=== PATIENT | male | born 1945 | race Caucasian/White ===

== ENCOUNTER → 2016-12-16 | Outpatient (CLI) | payer OTHER ==
[~2016-12-16] MED LIST: AGG PO; GLC500 PO; HYDC25 PO; INSDGI SC; LISI-461 PO; MCR5 PO; PRLSR20 PO; SIMV80TA2 PO; VIT B 1
--- NOTE | 2016-12-17 05:52 | PAP/PSG TECHNICIAN REPORT ---
[facility] Mash Preparatory Operator Polysomnogram Report Study name: None Report date: 12/17/2016 Study date: 12/16/2016 Referring Physician: DR. ABENA GALICIA Name: JOLENE HUYNH Interpreting Physician: Rolando Mcdermott M.D. Date of : 1945 Mash Preparatory Operator: Babita Valladares RPS. Sex: Male Age: 71 StudyType: PSG Weight: 253 lbs Height: 71 years, Height 5' 9" BMI: 37.36 Medications: Insulin, Metformin 1000 mg Patient History 71 yr. old male here for a diagnostic sleep study. Patient is tired and does not have refreshing sleep. He is unsure if he snores. Patients Page Sleepiness Scale Score is 9/24. Parameters Monitored NPSG: E1-M2, E2-M1, Fp1-M2, Fp2-M1, F3-M2, F4-M2, F4-M1, C3-M2, C4-M2, C4-M1, O1-M2, O2-M2, O2-M1, T3-M2, T4-M1, P3-M2, P4-M1, CHIN1, CHIN2, HR, EKG, Legs, PFLOW, SNOR, FLOW, CFLOW, Tidal Volume, THOR, ABDO, SpO2, PLTH, CPRESS, ETCO2 Wave, ETCO2, pH Sleep Architecture Sleep Stages Time at Lights Off 8:51:22 PM STAGES Time (min.) TST (%) Time at Lights On 5:31:22 AM Wake 93.5 -- Total Recording Time (TRT) 520.00 min. N1 46.0 11 Total Sleep Period (TSP) 496.5 min. N2 268.5 63 Total Sleep Time (TST) 426.5min. N3 60.0 14 Awake Time 93.5 min. REM 52.0 12 Wake after Sleep Onset 71.0 min. Sleep Efficiency (SE) 82 % Sleep Onset Latency (MANINDER) 22.5 min. Number of Stage 1 Shifts None Awakenings 22 Stage Changes 99 Number of REM periods 9 REM 52.0 12 REM Latency 179.5 min. NREM 374.5 88 Body Position Analysis Supine Right Left Side Prone Vertical Total Sleep Time (min.) 103.2 126.4 222.3 348.71 0.0 0.1 Total Sleep Time (%) 18% 30% 52% 82 0% N/A% Total Sleep Time REM (min.) 19.5 16.5 16.0 None 0.0 0.0 Total Sleep Time NREM (min.) 58.3 109.9 206.3 None 0.0 0.0 Intermittent Wake (min.) 25.4 37.6 30.4 None 0.0 0.1 Total Sleep Period (%) 16% None None None None None Arousals Myoclonus (PLM) * Events Count Index Events Count Index Spontaneous 3 0 Events Awake (PLMW) 37 23.7 Respiratory 13 2.1 Events Asleep w/ Arousal (PLMA) 18 2.5 PLM 16 3 Events Asleep w/o Arousal (PLMS) 592 83.3 Snoring 9 1 Total Asleep 610 85.8 Total 41 6 Total 647 75 Respiratory Analysis * CA OA MA CH H RERA Total Count 0 47 0 0 55 0 102 Index 0.0 6.6 0.0 0 7.7 0 14.3 Mean Duration 0.0 30.8 0.0 0.00 27.3 0.0 28.9 Longest Duration 0.0 55.5 0.0 0.00 0.0 0.0 58.5 Respiratory Event Summary Total Supine ~Supine Right Left Prone REM NREM Apneas Count 47 34 13 5 8 N/A 19 28 Index 6.6 26 2 2.4 2.2 N/A 22 4 Hypopneas (4% Desat) Count 55 14 41 21 20 N/A 18 37 Index 7.7 10.8 7 10.0 5.4 N/A 20.8 5.9 Apneas & All Hypopneas Count 102 48 54 26 28 N/A 37 65 Index 14.3 37 9 12 8 N/A 42.7 10.4 Respiratory Events (Auto Locator+All Hyp+RERA) Count 102 48 54 26 28 N/A 37 65 Index 14.3 37 9 12.3 7.6 N/A 42.7 10.4 Respiratory Related Arousal Count 13 48 8 2 6 N/A 6 9 Index 2.1 5 1 1 2 N/A 7 1 Snoring Analysis Supine Right Left Prone REM NREM Total Snore duration 112.3 min Snores count 549 1,519 2,708 N/A 364 4,412 4,776 Snore mean duration 1.4 Sec Snores index 423 721 731 N/A 420.0 706.9 671.9 TST with snoring (%) 26.3% Desaturation Event Summary: Minimum %SpO2 Event Count Mean/Min/Max Duration(sec.) Desaturation Index % Time In Bed > 90 97 33.5 / 7.0 / 60.0 12.9 87.9 86 - 90 11 26.1 / 7.0 / 39.3 11.2 11.5 81 - 85 0 N/A 0.0 0.6 76 - 80 0 N/A 0.0 0.0 71 - 75 0 N/A 0.0 0.0 66 - 70 0 N/A 0.0 0.0 61 - 65 0 N/A 0.0 0.0 56 - 60 0 N/A 0.0 0.0 51 - 55 0 N/A 0.0 0.0 < 50 0 N/A 0.0 0.0 Total REM NREM Awake <50% 0.0 min. 0.0 min. 0.0 min. 0.0 min. 51 - 60% 0.0 min. 0.0 min. 0.0 min. 0.0 min. 61 - 70% 0.0 min. 0.0 min. 0.0 min. 0.0 min. 71 - 80% 0.0 min. 0.0 min. 0.0 min. 0.0 min. 81 - 90% 62.0 min. 22.5 min. 28.9 min. 10.6 min. 91 - 100% 450.6 min. 29.5 min. 345.6 min. 75.5 min. Average 92 91 92 92 Minimum SpO2 81 81 81 81 Desaturation Event Index 11.5 36.9 9.1 7.7 # Desat. Events below 89% 33 20 12 1 Time(%) with Saturation below 89% 3.5 2.3 0.9 0.3 Time(min.) with Saturation below 89% 17.8 11.6 4.4 1.8 Time (mins) REM (mins) NREM (mins) % of TST SpO2 Below 90% 68 31 N37 6.1 SpO2 Below 88% 19 0 0 2 Heart Rate Analysis Min (bpm) Max (bpm) Average (bpm) Awake 32 82 65 NREM 52 78 62 REM 54 77 63 Overall 52 78 62 Supplemental O2 Values Minimum O2 level: None Value Start Time End Time Mash Preparatory Operator Comments Mr. Huynh slept in the right, left, and supine positions. Cardiac arrhythmia and PLMs noted. No bruxism noted. Snoring was noted and scored as a 4 on a scale of 0 through 5. (0=no snoring, 5=snoring loud enough to be heard through a closed door or down the cabrera way) Mr. Huynh awoke to use the restroom once during the night. Mr. Huynh stated, that was a normal night. The final report will be interpreted and signed by a sleep physician. The completed physician report will then be placed in the patient medical record. Therapy (cm H2O) 0 TIB (min.) 520.0 TST (min.) 426.5 Sleep Onset (min.) 22.5 REM Onset From Sleep (min.) 179.5 Sleep Efficiency % 82 Wakefulness (%) 18 Wakefulness (min.) 93.5 NREM 1 (%) 11 NREM 1 (min.) 46.0 NREM 2 (%) 63 NREM 2 (min.) 268.5 NREM 3 (%) 14 NREM 3 (min.) 60.0 REM (%) 12 REM (min.) 52.0 # Arousals 41 Arousal Index 6 # Snore 4,776 Snore Index 671.9 AHI 14.3 AHI Supine 37 AHI Non-Supine 9 NREM AHI 10.4 REM AHI 42.7 RDI 14.3 # Obstructive Apnea 47 # Central Apnea 0 # Mixed Apnea 0 # Hypopneas 55 RERAs 0 Total Respiratory Events 103 Time Below SpO2 89% (min.) 16.0 Mean NREM SpO2 (%) 92 Mean REM SpO2 (%) 91 Mean Sleep SpO2 (%) 92 Min NREM SpO2 (%) 81 Min REM SpO2 (%) 81 Position Supine (min.) 103.2 Position Non-supine (min.) 348.7 LM Index Sleep 85.8 LM Index NREM 92.3 LM Index REM 39.2 Mean Heart Rate (bpm) 62 Min Heart Rate (bpm) 52
--- NOTE | 2016-12-18 11:12 | POLYSOMNOGRAPH REPORT ---
CLINICAL DATA: A 71-year-old male with BMI of 37.[address] Adolfo Vital with fatigue and unrefreshing sleep. He is unsure if he snores. His [place] sleepiness score is 9/24. SLEEP ARCHITECTURE: Total sleep period was 496.5 minutes. Total sleep time was 426.5 minutes divided between 374.5 minutes of non-REM sleep and 52 minutes of REM sleep. Sleep onset latency was 22.5 minutes. REM latency was 179.5 minutes. Sleep efficiency was 82%. Wake after sleep onset was 71 minutes. Sleep consisted of stage N1 11%, stage N2 63%, stage N3 14%, and REM 12%. AROUSAL DATA: Forty-one arousals were recorded for an index of 6 per hour. PLM DATA: Severely elevated limb movements during sleep were noted. There were 610 limb movements during sleep noted for an index of 85.8 per hour with arousal index of 2.5 per hour. RESPIRATORY DATA: Mild sleep apnea was documented. The AHI was 14.3. There were 47 obstructive apneic episodes. The longest apneic episode was 55.5 seconds. There were 55 hypopneic episodes with a mean duration of 27.3 seconds. OXIMETRY DATA: Nocturnal hypoxemia was seen. Oxygen yair was 81% during REM. The mean saturation was 92%. Time below 88% was 19 minutes. EKG: Heart rates ranged from 52-78 beats per minute. Occasional PVCs were noted. SOLDER TECHNICIAN'S COMMENTS: The patient slept in the right, left, and supine positions. Frequent PLMs were noted. Snoring was severe, rated 4 on a scale of 1-5. IMPRESSION: Mild sleep apnea/hypopnea with an AHI of 14.3 with nocturnal hypoxemia. RECOMMENDATIONS: The patient may benefit from use of an oral appliance, a repeat sleep study with CPAP, or use of auto CPAP. Clinical correlation is needed. [facility] HOSPITALZack
== END | disposition home or self-care (01) ==
LOC: C.NEUR 20:00
PROVIDERS: ATTEND Family Medicine
DX: R53.83 Other fatigue (principal)

== ENCOUNTER 2024-09-10 09:29 | Observation (INO) ==
--- NOTE | 2024-09-10 09:49 | Emergency Department Note ---
Impression & Plan Chest pain, Pleural effusion ED Provider Note NAME: JOLENE HUYNH AGE: 79 SEX: M : 1945 ARRIVES VIA: Walk-In INFORMANT: Patient, ED PROVIDER(S): Tommy Schultz MD CHIEF COMPLAINT: Chest pain MEDICAL DECISION MAKING: Patient presents due to concern for chest pain. Patient's story concerning open vitals initial EKG unremarkable. Patient was ordered blood work [id number] CT angiography of the chest to evaluate for PE and dissection. Patient had complained of pain radiating to the back. Patient ordered aspirin and morphine IV 4 mg. Patient reassessed and still uncomfortable. The patient was ordered fentanyl 25 mcg. Patient's blood work shows a white count 11.6 with a normal hemoglobin and platelet count kidney function unremarkable. The patient's initial troponin negative. CT angiography does show small left pleural effusion but no other concerning findings like PE aneurysm or dissection. Given the patient's acute symptoms do believe the patient would benefit from admission and further monitoring. I did speak with the on-call hospital service and the patient was admitted by Dr. Lord. Of note patient did have recurrence of his chest pain but this was after palpation reportedly by the inpatient service. Patient was ordered fentanyl but then this was canceled as the patient has standing orders of Tylenol and morphine noted. EKG was reviewed and unremarkable. Discussion w/ other healthcare providers: Dr. Lord inpatient medicine service Prior /Outside records reviewed: None Differential diagnosis: Cardiac ischemia, aortic dissection, pulmonary embolism, pneumothorax, pneumonia, pericarditis, myocarditis, GERD, cholecystitis, pancreatitis, musculoskeletal, as well as other pathologies were considered. Diagnostics, as interpreted by me: ECG: Sinus with rate degree AV block, rate of 73 prolonged LA normal QRS and normal axis. Repeat EKG interpreted by myself Sinus with first-degree AV block, rate of 67 prolonged LA normal QRS no obvious ST elevations. No significant change from comparison. Cardiac monitoring: An order was placed for continuous cardiac monitoring. The monitor shows a rate of 69 with sinus rhythm. Patient was placed on pulse oximetry Medical decision rules: None Imaging studies: I informally interpreted the patient's chest x-ray does not show obvious pneumonia or pneumothorax with formal report to follow. HPI: Patient presents due to concern for chest pain which began last evening. The patient states it was diffuse over the chest. He describes it as sharp and does radiate to the back. Patient states that he also does feel like there is somebody's "sitting on my chest." Patient denies any prior history of heart attack but has suffered prior stroke. Patient denies any cough or fever no leg swelling no history of DVT or PE. Patient denies any recent travel. Patient did not taken thing for symptoms at home. He did not take his morning medications today. Given the persistence of the symptoms he presented today. Patient denies any associated nausea vomiting or diaphoresis. PAST MEDICAL HISTORY: See Below PAST SURGICAL HISTORY: See Below SOCIAL HISTORY: See Below HOME MEDICATIONS: See Below ALLERGIES: See Below VITALS: See Below PHYSICAL EXAMINATION: GENERAL: Mildly ill in appearance with shallow breathing. Wearing glasses. EYE EXAM: Normal conjunctiva. PERRL, no anisocoria and EOM's grossly intact w/o pain. OROPHARYNX: Moist mucus membranes, grossly normal dentition. NECK: Trachea midline, no stridor. Supple, no nuchal rigidity, no adenopathy, non-tender. No signs of meningismus. FROM of the neck with good chin to chest and neck extension. LUNGS: Clear to auscultation. Normal chest wall mechanics. HEART: NSR, no MRG. ABDOMEN: Abdomen soft, non-tender, no masses, no rebound or guarding. BACK: No CVA TTP. SKIN: No rashes and no bruising. UPPER EXTREMITIES: Upper extremities are grossly normal. LOWER EXTREMITIES: Grossly normal, slight left greater than right lower extremity swelling but without significant edema. No TTP. No redness. NEURO EXAM: Awake and alert, follows commands, no obvious facial asymmetry, normal speech, moves all 4 extremities. 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 ANNETTE (obstructive sleep apnea) Post traumatic amnesia TIA (transient ischemic attack) BPH (benign prostatic hyperplasia) Decubital ulcer Diabetic neuropathy Hyperlipidemia Hypertension Diabetes History of stroke Surgical History H/O decompression of ulnar nerve H/O spinal fusion History of carpal tunnel release Family History Other Family history non-contributory Social History Smoking Status: Never smoker Hx Alcohol Use: No Hx Substance Use: No Preferred Language: [place] Communication Ability: Effective Visual Impairment: Limited Hearing Ability: Normal [employer] Principal Required: No Beliefs That Will Affect Care: None marital status: Current Living Situation: Alone current occupational status: disabled Feels Safe at Home: Yes Diet: regular caffeine: Yes during the past year weight has: decreased > 10 lbs Do you think of yourself as: straight/heterosexual Gender Identity: Male Assistive Devices: Walker Allergies Allergies Allergy/AdvReac Type Severity Reaction Status Date / Time No Known Drug Allergies Allergy Unknown Unknown Verified 05/05/21 10:03 mushroom Allergy UKN Verified 05/12/21 10:04 Home Meds Home Medications Medication Instructions Recorded Confirmed benzonatate 100 mg capsule 0 mg PO TID PRN Cough 05/06/18 09/10/24 omeprazole 20 mg tablet,delayed 20 mg PO QAM 05/06/18 09/10/24 release tamsulosin 0.4 mg capsule 0.4 mg PO DAILY 10/11/20 09/10/24 acetaminophen 500 mg tablet 500 mg PO BID 03/06/21 09/10/24 (Tylenol Extra Strength) insulin glargine 100 unit/mL 34 unit subcut QPM 04/04/21 09/10/24 subcutaneous solution (Lantus U-100 Insulin) lisinopril 10 mg tablet 10 mg PO DAILY 04/04/21 09/10/24 atorvastatin 20 mg tablet 20 mg PO HS 09/10/24 09/10/24 cholecalciferol (vitamin D3) 25 2,000 unit PO DAILY 09/10/24 09/10/24 mcg (1,000 unit) tablet cyanocobalamin (vitamin B-12) 500 500 mcg PO DAILY 09/10/24 09/10/24 mcg tablet loratadine 10 mg tablet 10 mg PO DAILY 09/10/24 09/10/24 magnesium oxide 420 mg tablet 420 mg PO DAILY 09/10/24 09/10/24 melatonin 3 mg capsule 6 mg PO HS PRN Sleep 09/10/24 09/10/24 metformin 500 mg tablet 500 mg PO BIDWMEAL 09/10/24 09/10/24 multivitamin with minerals 1 cap PO DAILY 09/10/24 09/10/24 semaglutide 1 mg subcut WK 09/10/24 09/10/24 ticagrelor 90 mg tablet 90 mg PO BID 09/10/24 09/10/24 Previous Rx's Medication Instructions Recorded azithromycin 250 mg tablet See Rx Instructions PO .COMPLEX #6 09/11/24 tabs ibuprofen 200 mg tablet 400 mg (2 x 200 mg) PO QID 7 days 09/11/24 #56 tabs metoprolol tartrate 25 mg tablet 12.5 mg (1/2 x 25 mg) PO BID #30 09/11/24 tabs Results & Data (ED) Vital Signs Vital Signs - 24 hr 09/10/24 09:40 Temperature 36.6 C Temperature Source Oral Pulse Rate 74 Pulse Rhythm Regular Respiratory Rate 20 Respiratory Effort / Characteristics Non-Labored Spontaneous Respiratory Depth Normal Respiratory Pattern Regular Blood Pressure 149/64 H Blood Pressure Mean 92 Blood Pressure Position Sitting Pulse Oximetry 96 Oxygen Delivery Method Room Air Sepsis Recent Fever Within 48 Hours No Sepsis New/Unexplained Change in Mental Status No Sepsis Action Taken by Nursing No Action Required Home Medications Current Medication List: was personally reviewed by me Laboratory Data Attestation: I reviewed the patient's lab results. 09/11/24 07:52 09/11/24 07:52 Lab Results 09/10/24 09/10/24 Range/Units 09:45 09:56 WBC 11.61 H (4.8-10.8) K/ul RBC 4.86 (4.70-6.10) M/uL Hgb 14.7 (14.0-18.0) g/dl POC Hgb 14.6 (14.0-18.0) g/dl Hct 43.5 (42.0-52.0) % POC Hct 43 (42-52) % MCV 89.5 (80.0-100.0) fL MCH 30.2 (25.0-34.0) pg MCHC 33.8 (32.0-36.0) g/dL RDW Std Deviation 38.5 (36.4-46.3) fL RDW Coeff of [place] 11.9 (11.5-14.5) % Plt Count 196 (130-400) K/uL MPV 10.9 (9.4-12.4) fL Immature Gran % (Auto) 0.3 % Neut % (Auto) 66.5 % Lymph % (Auto) 24.6 % [place] % (Auto) 7.3 % Eos % (Auto) 1.0 % Baso % (Auto) 0.3 % Neut # (Auto) 7.71 H (1.40-6.50) K/uL Lymph # (Auto) 2.86 (1.20-3.40) K/uL [place] # (Auto) 0.85 H (0.11-0.59) K/uL Eos # (Auto) 0.12 (0.00-0.50) K/uL Baso # (Auto) 0.03 (0.00-0.20) K/uL Immature Gran # (Auto) 0.04 (0.01-0.20) K/uL PT 10.9 (9.0-12.0) Seconds INR 1.0 (0.9-1.1) APTT 29 (21-31) Seconds PTT Ratio 1.1 POC Sodium 138 (135-144) mmol/L Sodium 136 (136-145) mmol/L POC Potassium 4.5 (3.3-5.0) mmol/L Potassium 4.4 (3.5-5.1) mmol/L POC Chloride 103 (101-112) mmol/L Chloride 103 (98-107) mmol/L Carbon Dioxide 27 (21-32) mmol/L POC Total CO2 23 L (24-31) mmol/L Anion Gap 6 (3-11) POC Anion Gap 18.0 (16-25) mmol/L POC BUN 13 (7-18) mg/dl BUN 14 (6-23) mg/dl Creatinine 1.04 (0.6-1.4) mg/dl POC Creatinine 1.1 (0.6-1.3) mg/dl Est Cr Clr Drug Dosing 67.6 ml/min eGFR 73.50 BUN/Creatinine Ratio 13.5 (10-20) Glucose 171 H (70-99(Fasting)) mg/dl POC Glucose (other) 167 H (70-99) mg/dl Calcium 9.3 (8.6-10.3) mg/dl POC Ioniz Calcium [place] 1.11 L (1.12-1.32) mmol/l Total Bilirubin 0.9 (0.2-1.0) mg/dl AST 18 (13-39) U/L ALT 18 (7-52) U/L Alkaline Phosphatase 79 (34-104) U/L Troponin I High Sens 3.6 (0-20) pg/ml Total Protein 7.1 (6.0-8.3) gm/dl Albumin 4.4 (3.4-5.0) gm/dl Globulin 2.7 (2.5-4.0) gm/dl Albumin/Globulin Ratio 1.6 (0.9-2) Lipase 29 (11-82) U/L Administered Medications Discontinued Medications Acetaminophen (Acetaminophen 500 Mg Tab) 500 mg PO BID CHRISSIE Stop: 10/10/24 20:59 Last Admin: 09/11/24 08:33 Dose: 500 mg Documented By: Admin: 09/10/24 21:17 Dose: 500 mg Documented By: ARELYP Acetaminophen (Acetaminophen 325 Mg Tab) 650 mg PO Q4H PRN PRN Reason: pain/fever Stop: 10/10/24 11:42 Last Admin: 09/10/24 13:20 Dose: 650 mg Documented By: MEE Aspirin (Aspirin Chew 324 Mg) 324 mg PO NOW STA Stop: 09/10/24 09:54 Last Admin: 09/10/24 10:00 Dose: 324 mg Documented By: ARELY Aspirin (Aspirin 81 Mg Ectab) 81 mg PO DAILY [facility]SIE Stop: 10/11/24 08:59 Last Admin: 09/11/24 08:33 Dose: 81 mg Documented By: KIERSTEN Atorvastatin Calcium (Atorvastatin 20 Mg Tab) 20 mg PO HS [facility]ISSIE Stop: 10/10/24 20:59 Last Admin: 09/10/24 21:18 Dose: 20 mg Documented By: ARELYP Cyanocobalamin (Cyanocobalamin (B-12) 500 Mcg Tablet) 500 mcg PO DAILY CH[facility]ISSIE Stop: 10/11/24 08:59 Last Admin: 09/11/24 08:33 Dose: 500 mcg Documented By: ESL Fentanyl Citrate (Fentanyl Citrate Pf 100 Mcg/2 Ml Vial) 50 mcg IV NOW STA Stop: 09/10/24 10:23 Last Admin: 09/10/24 10:35 Dose: Not Given Documented By: ARELY Fentanyl Citrate (Fentanyl Citrate Pf 100 Mcg/2 Ml Vial) 25 mcg IV NOW [facility] Stop: 09/10/24 10:25 Last Admin: 09/10/24 10:35 Dose: 25 mcg Documented By: ARELY Ibuprofen (Ibuprofen 200 Mg Tab) 400 mg PO QID [facility] Stop: 10/11/24 10:19 Last Admin: 09/11/24 10:51 Dose: 400 mg Documented By: KIERSTEN Insulin Aspart (Insulin Aspart Per Unit Charge) 0 units [facility] Stop: 10/10/24 12:44 Last Admin: 09/11/24 12:44 Dose: 5 units Documented By: KIERSTEN Co-signed By: ANTWON Admin: 09/11/24 09:21 Dose: 4 units Documented By: KIERSTEN Co-signed By: SHEY Admin: 09/10/24 21:19 Dose: 2 units Documented By: CYTNHIA Co-signed By: GAIL Admin: 09/10/24 18:02 Dose: 2 units Documented By: GRISELDA Co-signed By: SHEY Admin: 09/10/24 15:04 Dose: Not Given Documented By: GRISELDA Insulin Glargine (Lantus Per Unit Charge) 0 units SC [facility]; Protocol Stop: 10/10/24 20:59 Last Admin: 09/10/24 21:19 Dose: 10 units Documented By: CYNTHIA Co-signed By: GAIL Ioversol (Optiray 320 125ml) 120 ml IV ONCE ONE Stop: 09/10/24 10:10 Last Admin: 09/10/24 10:10 Dose: 120 ml Documented By: EMILY Lisinopril (Lisinopril 10 Mg Tab) 10 mg PO DAILY [facility] Stop: 10/11/24 08:59 Last Admin: 09/11/24 08:33 Dose: 10 mg Documented By: KIERSTEN Loratadine (Loratadine 10 Mg Tab) 10 mg PO DAILY [facility] Stop: 10/11/24 08:59 Last Admin: 09/11/24 08:33 Dose: 10 mg Documented By: KIERSTEN Magnesium Oxide (Magnesium Oxide 400 Mg Tab) 400 mg PO DAILY [facility] Stop: 10/11/24 08:59 Last Admin: 09/11/24 08:33 Dose: 400 mg Documented By: KIERSTEN Metoprolol Tartrate (Metoprolol Tartrate 25 Mg Tab) 25 mg PO BID [facility] Stop: 10/10/24 20:59 Last Admin: 09/11/24 08:33 Dose: 25 mg Documented By: Admin: 09/10/24 21:18 Dose: 25 mg Documented By: CYNTHIA Morphine Sulfate (Morphine Sulfate 4 Mg/Ml 1 Ml Carp\\Vial) 4 mg IV NOW STA Stop: 09/10/24 09:54 Last Admin: 09/10/24 10:00 Dose: 4 mg Documented By: ARELY Morphine Sulfate (Morphine Sulfate 4 Mg/Ml 1 Ml Carp\\Vial) 4 mg IV Q2H PRN PRN Reason: Pain Stop: 09/24/24 11:41 Last Admin: 09/11/24 03:37 Dose: 4 mg Documented By: Admin: 09/10/24 12:31 Dose: 4 mg Documented By: MARGARITA Multivitamins/Minerals (Cerovite Adv Formula Tab) 1 tab PO DAILY [facility] Stop: 10/11/24 08:59 Last Admin: 09/11/24 08:33 Dose: 1 tab Documented By: KIERSTEN Pantoprazole Sodium (Pantoprazole 40 Mg Tab) 40 mg PO QAM [facility] Stop: 10/11/24 08:59 Last Admin: 09/11/24 08:34 Dose: 40 mg Documented By: KIERSTEN Tamsulosin HCl (Tamsulosin Hcl 0.4 Mg Cap) 0.4 mg PO DAILY [facility] Stop: 10/11/24 08:59 Last Admin: 09/11/24 08:34 Dose: 0.4 mg Documented By: KIERSTEN Ticagrelor (Ticagrelor 90 Mg Tab) 90 mg PO BID [facility] Stop: 10/10/24 20:59 Last Admin: 09/11/24 08:34 Dose: 90 mg Documented By: Admin: 09/10/24 21:19 Dose: 90 mg Documented By: CYNTHIA Vitamin D (Cholecalciferol 25 Mcg (1000 Units) Tab) 25 mcg PO DAILY [facility] Stop: 10/11/24 08:59 Last Admin: 09/11/24 08:33 Dose: 25 mcg Documented By: KIERSTEN Imaging Data Radiologist's Impression: Chest X-Ray 09/10/24 09:53 Clinical History: Chest pain and shortness of breath Technique: A frontal view of the chest was obtained Findings: There are no confluent pulmonary infiltrates. The heart size is within normal limits. No pleural effusion or pneumothorax is seen. There is no definite pulmonary nodule. There is a thoracolumbar fusion. There are multiple old left rib fractures Impression: No active disease Electronically signed by Adiel Peters 09-10-2024 10:25 AM Chest CTA 09/10/24 10:01 Clinical history: Chest pain and shortness of breath. Rule out dissection Technique: Axial computed tomography images were obtained of the chest before and after the administration of intravenous contrast according to the CT angiogram protocol Comparison is made to the prior CT dated 10/11/2020 Findings: There is subsegmental atelectasis in the lingula and left lower lobe. There is minimal right lung base atelectasis. There is no right pleural effusion or pneumothorax. There is a small left pleural effusion. No endobronchial lesion is seen There is no mediastinal, hilar, or axillary adenopathy. The thoracic aorta appears unremarkable with no sign of aneurysm or dissection. There is no definite sign of pulmonary embolism. There is no pericardial effusion There are partially visualized bilateral renal cysts. There is a 2 mm right renal calculus. There are old healed rib fractures bilaterally. There is a posterior fusion of T7-T12. No focal osseous lesion is evident Impression: 1. No sign of thoracic aortic aneurysm or dissection 2. No definite sign of pulmonary embolism 3. Small left pleural effusion 4. Mild bilateral lung base atelectasis 5. Bilateral renal cysts and small right renal calculus Electronically signed by Adiel Peters 09-10-2024 10:54 AM Discharge Plan Visit Data Chief Complaint: Chest Pain Stated Complaint: SOB,TIGHTNESS OF CHEST ED Provider: Tommy Schultz Discharge Problem: Chest pain, Pleural effusion Patient Disposition: Admitted As Inpatient Condition: Good Discharge Instructions Interventions: ED Discharge Assessment Last Done: 09/10/24 14:25 Discharge Problem: Chest pain Qualifiers: Chest pain type: unspecified Qualified Code(s): R07.9 - Chest pain, unspecified
[2024-09-10] MEDS: MoRPHine SULFATE 4 MG/ML 1 ML CARP\\VIAL IV STA (10:00)
[2024-09-10] MEDS: ASPIRIN CHEW 324 MG PO STA (10:00)
[2024-09-10 10:07] LABS: Hematocrit (blood only) 43.5 % (42.0-52.0); Hemoglobin 14.7 g/dl (14.0-18.0); Immature Granulocytes # (auto) 0.04 K/uL (0.01-0.20); Immature Granulocytes % (auto) 0.3 %; Mean Corpuscular Hemoglobin 30.2 pg (25.0-34.0); Mean Corpuscular Volume 89.5 fL (80.0-100.0); Platelet Count 196 K/uL (130-400); RDW Standard Deviation 38.5 fL (36.4-46.3); Red Blood Count 4.86 M/uL (4.70-6.10); White Blood Count 11.61 K/ul (4.8-10.8)
[2024-09-10] MEDS: OPTIRAY 320 125ml IV ONE (10:10)
[2024-09-10 10:16] LABS: INR 1.0 (0.9-1.1); Partial Thromboplastin Time 29 Seconds (21-31); Prothrombin Time 10.9 Seconds (9.0-12.0)
[2024-09-10 10:25] LABS: Alanine Aminotransferase 18.0 U/L (7-52); Albumin Globulin Ratio 1.6 (0.9-2); Alkaline Phosphatase 79.0 U/L (34-104); Anion Gap 6.0 (3-11); Bilirubin,Total 0.9 mg/dl (0.2-1.0); Blood Urea Nitrogen 14.0 mg/dl (6-23); Calcium 9.3 mg/dl (8.6-10.3); Carbon Dioxide 27.0 mmol/L (21-32); Chloride 103.0 mmol/L (98-107); Creatinine Clr Calc Pharmacy 67.6 ml/min; Globulin 2.7 gm/dl (2.5-4.0); Glucose 171.0 mg/dl (70-99(Fasting)); Lipase 29.0 U/L (11-82); Potassium 4.4 mmol/L (3.5-5.1); Sodium 136.0 mmol/L (136-145); Total Protein 7.1 gm/dl (6.0-8.3)
--- NOTE | 2024-09-10 10:26 | XRay Report ---
Clinical History: Chest pain and shortness of breath Technique: A frontal view of the chest was obtained Findings: There are no confluent pulmonary infiltrates. The heart size is within normal limits. No pleural effusion or pneumothorax is seen. There is no definite pulmonary nodule. There is a thoracolumbar fusion. There are multiple old left rib fractures Impression: No active disease Electronically signed by Adiel Peters 09-10-2024 10:25 AM
--- NOTE | 2024-09-10 10:54 | CT Scan Report ---
Clinical history: Chest pain and shortness of breath. Rule out dissection Technique: Axial computed tomography images were obtained of the chest before and after the administration of intravenous contrast according to the CT angiogram protocol Comparison is made to the prior CT dated 10/11/2020 Findings: There is subsegmental atelectasis in the lingula and left lower lobe. There is minimal right lung base atelectasis. There is no right pleural effusion or pneumothorax. There is a small left pleural effusion. No endobronchial lesion is seen There is no mediastinal, hilar, or axillary adenopathy. The thoracic aorta appears unremarkable with no sign of aneurysm or dissection. There is no definite sign of pulmonary embolism. There is no pericardial effusion There are partially visualized bilateral renal cysts. There is a 2 mm right renal calculus. There are old healed rib fractures bilaterally. There is a posterior fusion of T7-T12. No focal osseous lesion is evident Impression: 1. No sign of thoracic aortic aneurysm or dissection 2. No definite sign of pulmonary embolism 3. Small left pleural effusion 4. Mild bilateral lung base atelectasis 5. Bilateral renal cysts and small right renal calculus Electronically signed by Adiel Pteers 09-10-2024 10:54 AM
[2024-09-10] MEDS ORDERED: MELATONIN 3 MG TAB PO PRN (11:40)
[2024-09-10] MEDS ORDERED: PHARMACY GLYCEMIC MGMT CONSULT PRN (11:42)
[2024-09-10] MEDS ORDERED: ONDANSETRON INJ 2 MG/ML 2 ML VIAL IV PRN (11:43)
[2024-09-10] MEDS ORDERED: SEMAGLUTIDE 1 MG SQ SCH (11:45)
[2024-09-10] MEDS: MoRPHine SULFATE 4 MG/ML 1 ML CARP\\VIAL IV PRN (12:31)
[2024-09-10] MEDS ORDERED: GLUCAGON FOR INJ 1 MG VIAL SQ PRN (12:45)
[2024-09-10] MEDS ORDERED: CARBOHYDRATES FOR HYPOGLYCEMIA PO PRN (12:45)
[2024-09-10] MEDS ORDERED: DEXTROSE 50% 50 ML SYRINGE IV PRN (12:45)
[2024-09-10] MEDS ORDERED: GLUCOSE 10 TAB/TUBE PO PRN (12:45)
[2024-09-10] MEDS ORDERED: GLUCOSE 40% GEL 15 GM TUBE PO PRN (12:45)
--- NOTE | 2024-09-10 12:54 | History & Physical Report ---
Date of Service September 10, 2024 Assessment & Plan (1) Chest pain: Plan: -tele -troponin WNL -asa, ticagrelor, metoprolol, atorvastatin -echo -cardiology consulted -CTA negative (2) Type 2 diabetes, uncontrolled, with neuropathy: Plan: -RISS -lantus (3) History of stroke: Plan: -ticagrelor (4) Hypertension: Plan: -lisinopril (5) BPH (benign prostatic hyperplasia): Plan: -tamsulosin History of Present Illness Chief Complaint: Chest pain Primary Care Provider: [facility] Pt is a 79 y/o male with pmh of CVA, DM, BPH who woke up this morning with severe chest pain greater on his left than right side. Pt denies any SOB, diaphoresis, or palpitations. The chest pain is reproducible upon palpation. In the ER his his EKG showed 1 degree AV block, no ST-T changes and his troponin were WNL. He had a CTA of the chest which was also negative. Pt continued to have intractable chest pain, which improved with fentanyl. He is being admitted for further cardiac work up to r/o ACS including cardiology consult. Allergies Allergy/AdvReac Type Severity Reaction Status Date / Time No Known Drug Allergies Allergy Unknown Unknown Verified 05/05/21 10:03 mushroom Allergy UKN Verified 05/12/21 10:04 Home Medications Medication Instructions Recorded Confirmed Type benzonatate 100 mg capsule 0 mg PO TID PRN Cough 05/06/18 09/10/24 History omeprazole 20 mg tablet,delayed 20 mg PO QAM 05/06/18 09/10/24 History release tamsulosin 0.4 mg capsule 0.4 mg PO DAILY 10/11/20 09/10/24 History acetaminophen 500 mg tablet 500 mg PO BID 03/06/21 09/10/24 History (Tylenol Extra Strength) insulin glargine 100 unit/mL 34 unit subcut QPM 04/04/21 09/10/24 History subcutaneous solution (Lantus U-100 Insulin) lisinopril 10 mg tablet 10 mg PO DAILY 04/04/21 09/10/24 History atorvastatin 20 mg tablet 20 mg PO HS 09/10/24 09/10/24 History cholecalciferol (vitamin D3) 25 2,000 unit PO DAILY 09/10/24 09/10/24 History mcg (1,000 unit) tablet cyanocobalamin (vitamin B-12) 500 500 mcg PO DAILY 09/10/24 09/10/24 History mcg tablet loratadine 10 mg tablet 10 mg PO DAILY 09/10/24 09/10/24 History magnesium oxide 420 mg tablet 420 mg PO DAILY 09/10/24 09/10/24 History melatonin 3 mg capsule 6 mg PO HS PRN Sleep 09/10/24 09/10/24 History metformin 500 mg tablet 500 mg PO BIDWMEAL 09/10/24 09/10/24 History multivitamin with minerals 1 cap PO DAILY 09/10/24 09/10/24 History semaglutide 1 mg subcut WK 09/10/24 09/10/24 History ticagrelor 90 mg tablet 90 mg PO BID 09/10/24 09/10/24 History Past Med/Surg History Problem List Type 2 diabetes, uncontrolled, with neuropathy (Chronic) Open wound of right ankle (Acute) Medical History Hemothorax Pneumothorax Anoxic brain injury Non-healing surgical wound Open wound of right elbow Wound of right ankle Cellulitis Hiatal hernia with GERD without esophagitis ANNETTE (obstructive sleep apnea) Post traumatic amnesia TIA (transient ischemic attack) BPH (benign prostatic hyperplasia) Decubital ulcer Diabetic neuropathy Hyperlipidemia Hypertension Diabetes History of stroke Surgical History H/O decompression of ulnar nerve H/O spinal fusion History of carpal tunnel release Family History Other Family history non-contributory Social History Smoking Status: Never smoker Hx Alcohol Use: Yes Hx Substance Use: No Preferred Language: Hebrew Communication Ability: Effective Visual Impairment: Limited Hearing Ability: Normal Children'S Nursery Assistant Required: No Beliefs That Will Affect Care: None marital status: Current Living Situation: Alone current occupational status: disabled Feels Safe at Home: Yes Diet: regular caffeine: Yes during the past year weight has: decreased > 10 lbs Do you think of yourself as: straight/heterosexual Gender Identity: Male Assistive Devices: Glasses Review of Systems Review of Systems: CONST: Negative for fever, body aches and chills. HENT: Negative for neck pain/stiffness, headache, congestion, sore throat, swelling. EYES: Negative for discharge/pain or vision changes. RESP: Negative for cough/hemoptysis and shortness of breath. CV: + chest pain, difficulty breathing, palpitations. ABD: Negative pain, nausea, vomiting. : Negative increase frequency, dysuria, blood in urine or stool. MUSC: Negative for muscle aches, edema. SKIN: Negative rash, lesions/sores. NEURO: Negative headache, dizziness, weakness. Physical Exam Physical Exam: GENERAL APPEARANCE NAD, activity normal for age, well developed/ well nourished, no cyanosis, pallor, or diaphoresis. EYES lids/conjunctiva normal. EARS/NOSE/THROAT Mucous membranes moist, nares normal, lips/teeth normal uvula midline without oral pharyngeal erythema, exudate or swelling TMs normal bilaterally. No lymphangitis/lymphedema. HEAD/NECK normocephalic atraumatic, no facial trauma, neck is supple. RESPIRATORY respiratory effort normal, speaks in full sentences, no tripod position, no accessory muscle use. Lungs clear to auscultation without rhonchi, wheezes, rales CARDIAC Regular rate and rhythm, no edema. Reproducible chest pain ABDOMINAL Soft, ND/NT. No evidence of fluid wave. No pulsatile masses on exam, rebound tenderness, Malave sign or pain over Mcburney's point. MUSCLES/EXTREMITIES No abnormal range of motion, no swelling. SKIN Warm, pink and dry. No rashes, dermatoses, petechiae or lesions. NEUROLOGICAL Speech is clear and appropriate. Normal level of consciousness. Gait and coordination are normal. 5/5 strength in all extremities. PSYCH Normal mood and affect. Judgement/competence is appropriate Results & Data Results & Data Vital Signs (Past 12 Hours) Vital Signs Temp Pulse Pulse Resp BP BP Pulse Ox 09/10/24 12:17 68 16 138/74 99 09/10/24 12:17 09/10/24 11:11 68 09/10/24 10:30 68 22 129/65 96 09/10/24 10:17 72 26 H 141/73 H 96 09/10/24 09:53 95 09/10/24 09:40 36.6 C 74 20 149/64 H 96 O2 Del Method 09/10/24 12:17 09/10/24 12:17 Room Air 09/10/24 11:11 09/10/24 10:30 09/10/24 10:17 09/10/24 09:53 Room Air 09/10/24 09:40 Room Air PG Care Time/CCT Total # of Minutes Spent Total Time Spent with Patient: Total time spent is greater than 50% in coordination of care (as documented) at patient's floor/unit and/or counseling patient: Coding Level of Care Code 02234 INT INP/OBS CARE 2/55MIN Diagnoses Chest pain R07.89 Chest pain type: other chest pain Type 2 diabetes, uncontrolled, with neuropathy E11.40; E11.65 History of stroke Z86.73 Hypertension I10 BPH (benign prostatic hyperplasia) N40.0 (1) Chest pain Chest pain type: other chest pain Qualified Code(s): R07.89 - Other chest pain
[2024-09-10] MEDS: ACETAMINOPHEN 325 MG TAB PO PRN (13:20)
[2024-09-10] MEDS ORDERED: KETOROLAC TROMETHAMINE 15 MG/ML VIAL IV PRN (13:33)
[2024-09-10] MEDS: INSULIN ASPART PER UNIT CHARGE SC SCH (15:04)
--- NOTE | 2024-09-10 15:36 | Pharmacy Report ---
Pharmacy Glycemic Short Note 2 - Date of Service September 10, 2024 - Glycemic Short BSG Results (Last 24 hours): 09/10/24 09/10/24 09:45 09:56 Glucose 171 H POC Glucose (other) 167 H OUTPATIENT ANTIDIABETIC REGIMEN: * Lantus 34 units SQ Q PM * metformin 500mg po bid * semaglutide 1mg SQ weekly HbA1c has been ordered for 09/11 ASSESSMENT: * Burke is a 79 year old male who was admitted today with chest pain. Pharmacy has been consulted for glycemic management while he is admitted. * BSG on admit was 167mg/dL. A weight based bolus insulin regimen with a stress of 2 was started and a Lantus scale (0, 10, or 20 units depending on BSG) was added at HS PLAN FOR INPATIENT GLYCEMIC CONTROL: * Hold outpatient diabetes medications * Basal insulin * Lantus scale (0,10, or 20 units depeding on BSG) at HS * Bolus insulin * NovoLog per scale ACHS or Q6hrs while NPO * Goal Range: Low 110 mg/dL - High 140 mg/dL * Correction Factor: 25 mg/dL/unit * Nutritional / Prandial insulin per carb ratio of 1 unit per 8 grams CHO consumed
--- NOTE | 2024-09-10 17:37 | Electrocardiogram Report ---
Test Reason : Blood Pressure : */* mmHG Vent. Rate : 73 BPM Atrial Rate : 73 BPM P-R Int : 224 ms QRS Dur : 88 ms QT Int : 370 ms P-R-T Axes : 63 52 55 degrees QTcB Int : 407 ms Sinus rhythm with 1st degree A-V block Otherwise normal ECG When compared with ECG of 11-Oct-2020 18:27, HR has decreased Confirmed by Burke Al ([id number]) on 09/10/2024 5:37:31 PM Referred By: Confirmed By: Burke Al
[2024-09-10] MEDS ORDERED: LANTUS PER UNIT CHARGE SQ SCH (21:00)
[2024-09-10] MEDS: ACETAMINOPHEN 500 MG TAB PO SCH (21:17)
[2024-09-10] MEDS: ATORVASTATIN 20 MG TAB PO SCH (21:18)
[2024-09-10] MEDS: METOPROLOL TARTRATE 25 MG TAB PO SCH (21:18)
[2024-09-10] MEDS: TICAGRELOR 90 MG TAB PO SCH (21:19)
[2024-09-10] MEDS: LANTUS PER UNIT CHARGE SC SCH (21:19)
[2024-09-10 22:46] LABS: Base Excess VBG 1.1 mEq/L; HCO3 VBG 25 mmol/L; Oxygen Saturation VBG 68.2 %; PCO2 VBG 37 mmHg (38-50); PO2 VBG 36 mmHg; pH VBG 7.44 (7.36-7.41)
[2024-09-10 22:50] LABS: Hematocrit (blood only) 39.7 % (42.0-52.0); Hemoglobin 13.7 g/dl (14.0-18.0); Immature Granulocytes # (auto) 0.05 K/uL (0.01-0.20); Immature Granulocytes % (auto) 0.3 %; Mean Corpuscular Hemoglobin 30.6 pg (25.0-34.0); Mean Corpuscular Volume 88.8 fL (80.0-100.0); Platelet Count 196 K/uL (130-400); RDW Standard Deviation 38.5 fL (36.4-46.3); Red Blood Count 4.47 M/uL (4.70-6.10); White Blood Count 15.94 K/ul (4.8-10.8)
[2024-09-10 23:09] LABS: Alanine Aminotransferase 16.0 U/L (7-52); Albumin Globulin Ratio 1.4 (0.9-2); Alkaline Phosphatase 63.0 U/L (34-104); Anion Gap 10.0 (3-11); Bilirubin,Total 1.1 mg/dl (0.2-1.0); Blood Urea Nitrogen 20.0 mg/dl (6-23); Calcium 8.8 mg/dl (8.6-10.3); Carbon Dioxide 23.0 mmol/L (21-32); Chloride 102.0 mmol/L (98-107); Creatinine Clr Calc Pharmacy 51.3 ml/min; Globulin 2.7 gm/dl (2.5-4.0); Glucose 175.0 mg/dl (70-99(Fasting)); Potassium 4.5 mmol/L (3.5-5.1); Sodium 135.0 mmol/L (136-145); Total Protein 6.4 gm/dl (6.0-8.3)
--- NOTE | 2024-09-10 23:50 | XRay Report ---
Exam(s): XR CXR 1 VIEW EXAM: XR Chest, 1 View CLINICAL HISTORY: chest pain, sob. TECHNIQUE: Frontal view of the chest. COMPARISON: Portable chest single view 09/10/2024 FINDINGS: Lungs: Shallow inspiration. No focal consolidation. The pulmonary vasculature demonstrates no significant radiographic abnormality. Pleural space: Unremarkable. No pneumothorax. No large pleural effusion. Heart: Unremarkable. No cardiomegaly. Mediastinum: No significant abnormality identified. The trachea is midline. Bones/joints: Posterior spinal fusion from the midthoracic region through the thoracolumbar junction is stable in appearance. No acute osseous abnormality. IMPRESSION: Suboptimal inspiratory effort. No acute cardiopulmonary process or significant alteration from the prior examination. Electronically signed by: Cruz Rodriguez MD 09/10/24 23:49 PM
--- NOTE | 2024-09-10 23:51 | XRay Report ---
Exam(s): XR KUB EXAM: XR Abdomen, 1 View CLINICAL HISTORY: abdominal pain. TECHNIQUE: Frontal supine view of the abdomen/pelvis. COMPARISON: No relevant prior studies available. FINDINGS: Gastrointestinal tract: Scattered gas in nondilated stomach and within loops of small and large bowel throughout the abdomen and pelvis, predominantly in the nondilated colon. No significant stool burden. Organs: Incidental contrast noted in the bladder. Bones/joints: Posterior fusion of the thoracic spine to the thoracolumbar junction. No acute osseous abnormality. IMPRESSION: Nonspecific, nonobstructive bowel gas pattern. Electronically signed by: Cruz Rodriguez MD 09/10/24 23:50 PM
[2024-09-11 04:05] LABS: Appearance Urine Clear (Clear); Bacteria Urine Automated None Seen (None Seen); Cast Urine Automated 0-2 /lpf (0-2); Epithelial Cell Urine Auto 0-2 /hpf (0-2); Glucose Urine UA Negative (Negative); RBC Urine Automated 0-2 /hpf (0-2); WBC Urine Automated 0-5 /hpf (0-5)
[2024-09-11 08:08] LABS: Hemoglobin A1C 7.2 % (4.5-5.6)
[2024-09-11] MEDS: CYANOCOBALAMIN (B-12) 500 MCG TABLET PO SCH (08:33)
[2024-09-11] MEDS: ASPIRIN 81 MG ECTAB PO SCH (08:33)
[2024-09-11] MEDS: CEROVITE ADV FORMULA TAB PO SCH (08:33)
[2024-09-11] MEDS: CHOLECALCIFEROL 25 MCG (1000 UNITS) TAB PO SCH (08:33)
[2024-09-11] MEDS: MAGNESIUM OXIDE 400 MG TAB PO SCH (08:33)
[2024-09-11] MEDS: LORATADINE 10 MG TAB PO SCH (08:33)
[2024-09-11] MEDS: TAMSULOSIN HCL 0.4 MG CAP PO SCH (08:34)
--- NOTE | 2024-09-11 09:57 | Cardiology Consultation ---
Date of Consultation September 11, 2024 Assessment & Plan (1) Chest pain: (2) Pericarditis: Plan 1. Chest discomfort: This appears to be pericarditis with a prolonged episode, negative cardiac enzymes and electrocardiographic changes consistent with that. 2. Pericarditis: I do not see a primary cause for pericarditis, it would likely be viral but I would be treated symptomatically. I would use nonsteroidal anti- inflammatory medications, I will start him on every 6 hours Motrin to see if we can control his symptoms that way. He will need an echocardiogram which I believe was done although he does not seem confident of that, I will check on that later today but it has not been read in any case. History of Present Illness Reason for Consultation: Chest pain Attending Physician: Gabo Monroy MD History of Present Illness This is a 79-year-old male who has a history of hypertension, dyslipidemia and CVA per old records but no prior cardiac history. He woke up with substernal chest discomfort which he describes as pressure like someone sitting on his chest on the morning of September 10, 2024. The pain was fairly significant, it was worse when laying down, did not have a respiratory component and may have waxed and waned somewhat but was fairly steady until resolving in the records analysis manager hours today. He relates the resolution to receiving pain medications. He is not very active doing part to back problems and right arm problems but it is not related to activity. At the time of my evaluation he is pain-free. Of note he has never had this before, it was not associated with shortness of breath although he describes being only able to take short breaths with it, but feels it breathing did not exacerbated. He did not have palpitations, lightheadedness or dizziness. He does not describe any recent viral illness. Studies here include high-sensitivity troponin x 3 including this morning which were all normal. He had a number of electrocardiograms, the first 1 was on arrival in the emergency room and it appears normal with no ST deviation. He had another electrocardiogram done 2 and half hours later shows minor extent, however an electrocardiogram done at 3:45 AM this morning shows increased diffuse ST elevation consistent with pericarditis. Another electrocardiogram done at 7:35 AM today looks quite similar. Imaging studies included a chest x- ray on presentation which was unremarkable and a chest CTA which showed no dissection or pulmonary embolism. Allergies Allergy/AdvReac Type Severity Reaction Status Date / Time No Known Drug Allergies Allergy Unknown Unknown Verified 05/05/21 10:03 mushroom Allergy UKN Verified 05/12/21 10:04 Home Medications Medication Instructions Recorded Confirmed Type benzonatate 100 mg capsule 0 mg PO TID PRN Cough 05/06/18 09/10/24 History omeprazole 20 mg tablet,delayed 20 mg PO QAM 05/06/18 09/10/24 History release tamsulosin 0.4 mg capsule 0.4 mg PO DAILY 10/11/20 09/10/24 History acetaminophen 500 mg tablet 500 mg PO BID 03/06/21 09/10/24 History (Tylenol Extra Strength) insulin glargine 100 unit/mL 34 unit subcut QPM 04/04/21 09/10/24 History subcutaneous solution (Lantus U-100 Insulin) lisinopril 10 mg tablet 10 mg PO DAILY 04/04/21 09/10/24 History atorvastatin 20 mg tablet 20 mg PO HS 09/10/24 09/10/24 History cholecalciferol (vitamin D3) 25 2,000 unit PO DAILY 09/10/24 09/10/24 History mcg (1,000 unit) tablet cyanocobalamin (vitamin B-12) 500 500 mcg PO DAILY 09/10/24 09/10/24 History mcg tablet loratadine 10 mg tablet 10 mg PO DAILY 09/10/24 09/10/24 History magnesium oxide 420 mg tablet 420 mg PO DAILY 09/10/24 09/10/24 History melatonin 3 mg capsule 6 mg PO HS PRN Sleep 09/10/24 09/10/24 History metformin 500 mg tablet 500 mg PO BIDWMEAL 09/10/24 09/10/24 History multivitamin with minerals 1 cap PO DAILY 09/10/24 09/10/24 History semaglutide 1 mg subcut WK 09/10/24 09/10/24 History ticagrelor 90 mg tablet 90 mg PO BID 09/10/24 09/10/24 History Patient History Medical History Hemothorax Pneumothorax Anoxic brain injury Non-healing surgical wound Open wound of right elbow Wound of right ankle Cellulitis Hiatal hernia with GERD without esophagitis ANNETTE (obstructive sleep apnea) Post traumatic amnesia TIA (transient ischemic attack) BPH (benign prostatic hyperplasia) Decubital ulcer Diabetic neuropathy Hyperlipidemia Hypertension Diabetes History of stroke Surgical History H/O decompression of ulnar nerve H/O spinal fusion History of carpal tunnel release Family History Other Family history non-contributory Social History Smoking Status: Never smoker Hx Alcohol Use: No Hx Substance Use: No Preferred Language: Macedonian Communication Ability: Effective Visual Impairment: Limited Hearing Ability: Normal Lasting Machine Operator Required: No Beliefs That Will Affect Care: None marital status: Current Living Situation: Alone current occupational status: disabled Feels Safe at Home: Yes Diet: regular caffeine: Yes during the past year weight has: decreased > 10 lbs Do you think of yourself as: straight/heterosexual Gender Identity: Male Assistive Devices: Cane, Glasses and Walker Review of Systems Review of Systems: All systems reviewed & are unremarkable except as noted in HPI & below Physical Exam Physical Exam: Constitutional: Alert, cooperative and in no distress. HEENT: Unremarkable Neck: No jugular venous distention, carotid pulses are normal and equal bilaterally without bruits. Pulmonary: Clear to auscultation bilaterally. Cardiac: Regular rhythm with no murmur, gallop or rub. Abdomen: Soft, nontender with normal bowel sounds. Extremities: No edema. Distal pulses intact. Neurologic: No focal findings. Gait is steady. Skin: No rash, ecchymoses or petechiae. Results & Data Vital Signs (Past 12 Hours) Vital Signs Temp Pulse Pulse Resp BP Pulse Ox O2 Del Method 09/11/24 08:52 Room Air 09/11/24 08:25 36.6 C 62 16 119/72 93 Room Air 09/11/24 07:48 68 09/11/24 03:30 36.6 C 67 18 107/67 95 Room Air 09/10/24 23:58 77 09/10/24 23:00 36.8 C 71 20 100/62 93 Room Air Laboratory Results Cardiac Enzymes 09/10/24 09/10/24 09/11/24 Range/Units 09:45 22:30 04:38 AST 18 14 (13-39) U/L Troponin I High Sens 3.6 4.2 5.6 (0-20) pg/ml Coagulation 09/10/24 Range/Units 09:45 PT 10.9 (9.0-12.0) Seconds APTT 29 (21-31) Seconds CBC 09/10/24 09/10/24 Range/Units 09:45 22:30 WBC 11.61 H 15.94 H (4.8-10.8) K/ul RBC 4.86 4.47 L (4.70-6.10) M/uL Hgb 14.7 13.7 L (14.0-18.0) g/dl Hct 43.5 39.7 L (42.0-52.0) % Plt Count 196 196 (130-400) K/uL Neut # (Auto) 7.71 H 12.44 H (1.40-6.50) K/uL Lymph # (Auto) 2.86 2.25 (1.20-3.40) K/uL [place] # (Auto) 0.85 H 1.16 H (0.11-0.59) K/uL Eos # (Auto) 0.12 0.01 (0.00-0.50) K/uL Baso # (Auto) 0.03 0.03 (0.00-0.20) K/uL Comprehensive Metabolic Panel 09/10/24 09/10/24 Range/Units 09:45 22:30 Sodium 136 135 L (136-145) mmol/L Potassium 4.4 4.5 (3.5-5.1) mmol/L Chloride 103 102 (98-107) mmol/L Carbon Dioxide 27 23 (21-32) mmol/L BUN 14 20 (6-23) mg/dl Creatinine 1.04 1.35 D (0.6-1.4) mg/dl Glucose 171 H 175 H (70-99(Fasting)) mg/dl Calcium 9.3 8.8 (8.6-10.3) mg/dl AST 18 14 (13-39) U/L ALT 18 16 (7-52) U/L Alkaline Phosphatase 79 63 (34-104) U/L Total Protein 7.1 6.4 (6.0-8.3) gm/dl Albumin 4.4 3.7 (3.4-5.0) gm/dl Intake and Output 09/10/24 09/11/24 09/11/24 22:59 06:59 14:59 Output Total 150 / 150 Balance -150 / -150 Output: Urine 150 / 150 Other: Weight 95.1 kg Weight Measurement Method Built in [facility] Diagnostic Findings Telemetry: Sinus rhythm rate 60-70, no significant arrhythmia. PG Care Time/CCT Total # of Minutes Spent Total Time Spent with Patient: Total time spent is greater than 50% in coordination of care (as documented) at patient's floor/unit and/or counseling patient: Coding Level of Care Code 63618 INT INP/OBS CARE 3/75MIN Diagnoses Chest pain R07.89 Chest pain type: other chest pain Pericarditis I31.9 (1) Chest pain Chest pain type: other chest pain Qualified Code(s): R07.89 - Other chest pain
--- NOTE | 2024-09-11 10:43 | Pharmacy Report ---
Pharmacy Glycemic Short Note 2 - Date of Service September 11, 2024 - Glycemic Short BSG Results (Last 24 hours): 09/10/24 09/10/24 09/10/24 16:47 20:14 22:30 Glucose 175 H POC Glucose 137 H 173 H 09/11/24 08:04 Glucose POC Glucose 151 H OUTPATIENT ANTIDIABETIC REGIMEN: * Lantus 34 units SQ Q PM * metformin 500mg po bid * semaglutide 1mg SQ weekly HbA1c has been ordered for 09/11 ASSESSMENT: 09/11 * Burke received 14 units of insulin yesterday (10 were basal) * Fasting BSG this AM acceptable. Continue with basal scale at this time. * NovoLog appears to be correcting and covering appropriately at this time. * No glycemic stressors noted at this time. 09/10 * Burke is a 79 year old male who was admitted today with chest pain. Pharmacy has been consulted for glycemic management while he is admitted. * BSG on admit was 167mg/dL. A weight based bolus insulin regimen with a stress of 2 was started and a Lantus scale (0, 10, or 20 units depending on BSG) was added at HS PLAN FOR INPATIENT GLYCEMIC CONTROL: * Hold outpatient diabetes medications * Basal insulin * Lantus scale (0,10, or 20 units depeding on BSG) at HS * Bolus insulin * NovoLog per scale ACHS or Q6hrs while NPO * Goal Range: Low 110 mg/dL - High 140 mg/dL * Correction Factor: 25 mg/dL/unit * Nutritional / Prandial insulin per carb ratio of 1 unit per 8 grams CHO consumed
[2024-09-11] MEDS: IBUPROFEN 200 MG TAB PO SCH (10:51)
--- NOTE | 2024-09-11 12:26 | XCELERA ---
[id number]
--- NOTE | 2024-09-11 12:29 | Discharge Summary ---
Discharge Summary Date of Service September 11, 2024 Principal Dx & Hospital Course #1 = Principal Diagnosis (1) Chest pain: 79-year-old male with a history of stroke, hypertension, BPH, type II DM who presented for chest pain with a reproducible component. He had nonspecific EKG changes and 3 normal serial troponins. Chest pain, suspected viral pericarditis Nonspecific EKG changes, 3 normal serial troponins. Was seen by cardiology, suspected to have pericarditis based on exam and review and was started on ibuprofen. Was continued on ibuprofen at discharge. Echo was with normal wall motion, mild diastolic dysfunction. No evidence of tamponade or significant effusion Chest pain resolved at time of discharge Leukocytosis, elevated procalcitonin Day of discharge patient did have a leukocytosis, had an elevated procalcitonin on admission, and was with borderline hypotension although reported his blood pressure normally in the low 100s at home UA was negative, Lyme testing negative, peripheral smear for tickborne infections was pending, CTA did not show any obvious lobar pneumonia or atypical pneumonia although there was some left basilar fluid and atelectasis, and he had no abdominal symptoms. Given leukocytosis, elevated procalcitonin, and low blood pressure strong concern was expressed to patient for an occult infection and recommended following blood cultures, antihypertensive hold, and continued observation. Patient was adamant that he was not willing to stay in the hospital any further and needed to be discharged by 1:00. He felt clinically well, had no infectious symptoms, and was able to ambulate independently with no lightheadedness dizziness or orthostasis. He reports his blood pressure was normally in the low 100s and had gotten his morning blood pressure medication recently. He did not have any fever, chills, nausea/vomiting, abdominal pain, dysuria, cough, shortness of breath, or ongoing chest pain. He has not had any tick exposures denied any rashes or skin pain and denied insect bites. On shared decision making did prefer and recommend patient have continued observation to ensure his blood pressure stabilized and to trend his white blood cell count. He was unwilling to stay for this as he felt well at his normal baseline and did ambulate independently with no symptoms with nursing staff. Given this rather than signed out AMA did discharge with azithromycin given a trace amount of fluid and initially suspected atelectasis of the left lower lung on his CTA to cover for possible early developing pneumonia and a risk to minimize harm. Strict return precautions to the ER were given to patient, and he reports he will [facility] 1 week. Due to his hypotension patient reporting borderline low pressures at baseline in the mornings did hold his lisinopril for 1 week, dose reduce his metoprolol with instructions of follow-up with his [facility] provider for further recommendations regarding his antihypertensives and to call 911 for evaluation in the ER if he has any lightheadedness, dizziness, syncope, or progressive weakness. (2) Type 2 diabetes, uncontrolled, with neuropathy: (3) History of stroke: (4) Hypertension: (5) BPH (benign prostatic hyperplasia): Admission HPI Per Admitting Provider Pt is a 79 y/o male with pmh of CVA, DM, BPH who woke up this morning with s evere chest pain greater on his left than right side. Pt denies any SOB, diaphoresis, or palpitations. The chest pain is reproducible upon palpation. In the ER his his EKG showed 1 degree AV block, no ST-T changes and his troponin were WNL. He had a CTA of the chest which was also negative. Pt continued to have intractable chest pain, which improved with fentanyl. He is being admitted for further cardiac work up to r/o ACS including cardiology consult. Discharge Exam General: A&Ox3. NAD. Cooperative. HEENT: Atraumatic, normocephalic. Vision and hearing grossly intact. Pupils equal and reactive to light. Pulm: CTAB A&P. -wheezes, -rales, -rhonchi. Symmetrical chest rise. No increase in work of breathing. No respiratory distress. Cardiac: RRR, -mrg. Radial pulses intact and symmetrical. No chest wall pain this morning Abdominal: Nontender, nondistended, soft. BS present. Moving all extremities equally. Cyanide Pot Tender strength, hip flexion, ankle dorsiflexion/plantarflexion 5/5 bilaterally. He is able to ambulate independently with nursing staff at his normal baseline. No lightheadedness/dizziness or difficulty ambulating. No orthostasis Discharge Plan Discharge Items Patient Disposition: Home - Home Health Services Reason For Visit: CHEST PAIN Discharge Diagnosis: pericarditis Activity: Resume your previous activity Non-emergency contact: Dry Janitor Call non-emergency contact if: you have any medication questions, your symptoms worsen and your pain is not controlled Follow-up/Referrals: [facility] [Primary Care Provider] - (appointment within 1 week) Diet: Heart Healthy Addtl Attending Provider Instructions: You were seen in the emergency department and observed for chest pain. Your EKG was suspicious for pericarditis. Your chest pain improved and you did not have ongoing chest pain. A CAT scan of your chest did not show any acute abnormalities. You did have some lab abnormalities suggestive of infection. Your white blood cell count was elevated, your procalcitonin was elevated, and your blood pressure was low. You did not have any clear source of infection, you did not have any respiratory symptoms and a CTA of your chest did not show lobar pneumonia, you did not have any urinary symptoms and your urinalysis was normal. He does not have any gastrointestinal symptoms. You did not have any insect bites or signs of cellulitis. You had a Lyme test which was negative, although this can be negative in early stages of Lyme disease. You do have pets but they are indoor pets. A full tickborne panel including Babesia/Anaplasma smear was pending. An ultrasound of your heart did not show evidence of effusion. Your left ventricle ejection fraction was normal at 60 to 65%. There was mild stiffness/grade 1 diastolic dysfunction on relaxation of the heart wall. Due to your elevated infectious markers and low blood pressure it was recommended that you remain inpatient pending repeat blood pressure measurements, monitoring of your blood cultures, and to ensure that you were clinically stable. This was discussed with you at bedside, you were not willing to remain in the hospital for further treatment/observation although this was recommended you did have a small amount of fluid on your left lung, in an effort to minimize harm you were prescribed a 5-day course with azithromycin to cover for potential early developing basilar pneumonia. You are on lisinopril which can lower blood pressure, which tends to run in the low 100s for you normally. This has been held. You were ambulating independently at your normal level of ability without any lightheadedness or dizziness at time of discharge. You did not have any chest pain chest pressure shortness of breath or other symptoms An appointment is being scheduled for you with the [facility]. You should be seen for follow-up within 1 week. You should have a repeat CBC/procalcitonin drawn at that appointment. If you develop any new or worsening symptoms including fever, chills, sweats, chest pain, chest pressure, difficulty breathing, uncontrolled nausea/vomiting, rash, wheezing, passing out or nearly passing out, bleeding, black/bloody bowel movements, or other new or concerning symptoms please call 911 for re-evaluation in the emergency department. Pending Studies at Discharge: No Stand-Alone Forms: My [facility], Smoking Cessation Medications and DC Order Prescriptions: New azithromycin 250 mg tablet See Rx Instructions .ROUTE .COMPLEX Qty: 6 0RF Rx Instructions: For 250 mg dose pack: take 500 mg today (day 1), then 250 mg for 4 days (days 2-5) metoprolol tartrate 25 mg Tablet 12.5 mg PO BID Qty: 30 0RF ibuprofen 200 mg Tablet 400 mg PO QID 7 Days Qty: 56 0RF Continued acetaminophen [Tylenol Extra Strength] 500 mg tablet 500 mg PO BID Lantus U-100 Insulin 100 unit/mL solution 34 unit SUBCUT QPM benzonatate 100 mg capsule 0 mg PO TID PRN (Reason: Cough) Patient Comments: 09/10- discontinued per ND list omeprazole 20 mg Tablet,Delayed Release (Dr/Ec) 20 mg PO QAM tamsulosin 0.4 mg Capsule 0.4 mg PO DAILY metformin 500 mg Tablet 500 mg PO BIDWMEAL atorvastatin 20 mg Tablet 20 mg PO HS magnesium oxide 420 mg Tablet 420 mg PO DAILY cyanocobalamin (vitamin B-12) 500 mcg Tablet 500 mcg PO DAILY loratadine 10 mg Tablet 10 mg PO DAILY Multi-Vitamin W/Minerals Capsule 1 cap PO DAILY cholecalciferol (vitamin D3) 25 mcg (1,000 unit) Tablet 2,000 unit PO DAILY ticagrelor 90 mg Tablet 90 mg PO BID melatonin 3 mg Capsule 6 mg PO HS PRN (Reason: Sleep) semaglutide 1 mg subcut WK Rx Instructions: 1mg/0.75mL Held lisinopril 10 mg tablet 10 mg PO DAILY Hold Instructions: Resume on 09/21/24. Onel/Other Patient Handouts: Managing Type 2 Diabetes Admission Data Admit Date/Time: 09/10/24 11:43 Attending Provider: Gabo Monroy Admit Provider: Lauro Lord Primary Care Provider: [facility] Other Providers: Lauro Lord; Burke Al Hospital Stay Data Consultations 09/10/24 11:14 ED Decision to Admit Stat 09/10/24 11:38 Consult Cardiology Routine Diagnostic Imagining Performed 09/10/24 10:01 CT angio chest dissec wo/w con Stat Discharge Instructions Given to Patient (Per Discharging Provider) You were seen in the emergency department and observed for chest pain. Your EKG was suspicious for pericarditis. Your chest pain improved and you did not have ongoing chest pain. A CAT scan of your chest did not show any acute abnormalities. You did have some lab abnormalities suggestive of infection. Your white blood cell count was elevated, your procalcitonin was elevated, and your blood pressure was low. You did not have any clear source of infection, you did not have any respiratory symptoms and a CTA of your chest did not show lobar pneumonia, you did not have any urinary symptoms and your urinalysis was normal. He does not have any gastrointestinal symptoms. You did not have any insect bites or signs of cellulitis. You had a Lyme test which was negative, although this can be negative in early stages of Lyme disease. You do have pets but they are indoor pets. A full tickborne panel including Babesia/Anaplasma smear was pending. An ultrasound of your heart did not show evidence of effusion. Your left ventricle ejection fraction was normal at 60 to 65%. There was mild stiffness/grade 1 diastolic dysfunction on relaxation of the heart wall. Due to your elevated infectious markers and low blood pressure it was recommended that you remain inpatient pending repeat blood pressure measurements, monitoring of your blood cultures, and to ensure that you were clinically stable. This was discussed with you at bedside, you were not willing to remain in the hospital for further treatment/observation although this was recommended you did have a small amount of fluid on your left lung, in an effort to minimize harm you were prescribed a 5-day course with azithromycin to cover for potential early developing basilar pneumonia. You are on lisinopril which can lower blood pressure, which tends to run in the low 100s for you normally. This has been held. You were ambulating independently at your normal level of ability without any lightheadedness or dizziness at time of discharge. You did not have any chest pain chest pressure shortness of breath or other symptoms An appointment is being scheduled for you with the [facility]. You should be seen for follow-up within 1 week. You should have a repeat CBC/procalcitonin drawn at that appointment. If you develop any new or worsening symptoms including fever, chills, sweats, chest pain, chest pressure, difficulty breathing, uncontrolled nausea/vomiting, rash, wheezing, passing out or nearly passing out, bleeding, black/bloody bowel movements, or other new or concerning symptoms please call 911 for re-evaluation in the emergency department. Total Time Total Time Spent Total Time Spent (In Minutes): Time spend day of discharge 70 minutes including direct patient care, documentation, review of labs and images, and coordination of care. Coding Level of Care Code 65289 INP/OBS DISCH >30 MIN Diagnoses Chest pain R07.89 Chest pain type: other chest pain Type 2 diabetes, uncontrolled, with neuropathy E11.40; E11.65 History of stroke Z86.73 Hypertension I10 BPH (benign prostatic hyperplasia) N40.0
[2024-09-11 13:01] LABS: Hematocrit (blood only) 37.2 % (42.0-52.0); Hemoglobin 12.6 g/dl (14.0-18.0); Immature Granulocytes # (auto) 0.06 K/uL (0.01-0.20); Immature Granulocytes % (auto) 0.5 %; Mean Corpuscular Hemoglobin 30.3 pg (25.0-34.0); Mean Corpuscular Volume 89.4 fL (80.0-100.0); Platelet Count 167 K/uL (130-400); RDW Standard Deviation 38.9 fL (36.4-46.3); Red Blood Count 4.16 M/uL (4.70-6.10); White Blood Count 13.28 K/ul (4.8-10.8)
[2024-09-11 13:13] LABS: Anion Gap 7.0 (3-11); Blood Urea Nitrogen 20.0 mg/dl (6-23); Calcium 8.6 mg/dl (8.6-10.3); Carbon Dioxide 24.0 mmol/L (21-32); Chloride 102.0 mmol/L (98-107); Creatinine Clr Calc Pharmacy 60.2 ml/min; Glucose 143.0 mg/dl (70-99(Fasting)); Potassium 4.4 mmol/L (3.5-5.1); Sodium 133.0 mmol/L (136-145)
--- NOTE | 2024-09-11 13:50 | Electrocardiogram Report ---
Test Reason : Blood Pressure : */* mmHG Vent. Rate : 67 BPM Atrial Rate : 67 BPM P-R Int : 232 ms QRS Dur : 88 ms QT Int : 378 ms P-R-T Axes : 44 51 55 degrees QTcB Int : 399 ms Sinus rhythm with 1st degree A-V block ST elevation, consider early repolarization, pericarditis, or injury Otherwise normal ECG When compared with ECG of 10-Sep-2024 09:41, No significant change was found Confirmed by Burke Al ([id number]) on 09/11/2024 1:50:01 PM Referred By: REFERRED SELF Confirmed By: Burke Al
--- NOTE | 2024-09-11 15:34 | Electrocardiogram Report ---
Test Reason : Blood Pressure : */* mmHG Vent. Rate : 69 BPM Atrial Rate : 69 BPM P-R Int : 224 ms QRS Dur : 86 ms QT Int : 376 ms P-R-T Axes : 19 11 24 degrees QTcB Int : 402 ms Sinus rhythm with sinus arrhythmia with 1st degree A-V block ST elevation, consider early repolarization, pericarditis, or injury Abnormal ECG When compared with ECG of 10-Sep-2024 12:22, (unconfirmed) ST elevation is more prominent Confirmed by Burke Al ([id number]) on 09/11/2024 3:34:33 PM Referred By: REFERRED SELF Confirmed By: Burke Al
--- NOTE | 2024-09-11 15:38 | Electrocardiogram Report ---
Test Reason : Blood Pressure : */* mmHG Vent. Rate : 63 BPM Atrial Rate : 63 BPM P-R Int : 230 ms QRS Dur : 86 ms QT Int : 384 ms P-R-T Axes : 22 30 30 degrees QTcB Int : 392 ms Sinus rhythm with 1st degree A-V block ST elevation, consider early repolarization, pericarditis, or injury Abnormal ECG When compared with ECG of 11-Sep-2024 03:45, (unconfirmed) No significant change was found Confirmed by Burke Al ([id number] on 09/11/2024 3:37:56 PM Referred By: REFERRED SELF Confirmed By: Burke Al
== END 2024-09-11 13:15 | disposition home health service (06) ==
LOC: ED 09:29 → 2N 09:29 → SUATTDRO 11:43 → 2N 14:25